=== PATIENT | male | born 1960 | race African-American/Black ===

== ENCOUNTER 2020-03-10 21:04 | Emergency (ER) | payer SELFPAY ==
[2020-03-10 21:10] VITALS: BP 128/81; PULSE 88; TEMP 98; BMI 32.8
[2020-03-10] MEDS ORDERED: TETRACAINE 0.5% OPHTH SOLN 2 ML BOTTLE ONE (21:11)
[2020-03-10] MEDS ORDERED: FLUORESCEIN NA 1 EA STRIP ONE (21:11)
--- NOTE | 2020-03-10 22:14 | PDOC ---
History of Present Illness - General Chief Complaint: Eye Problem Stated Complaint: RT EYE PAIN Time Seen by Provider: 03/10/20 21:08 - History of Present Illness Initial Comments: This 60-year-old man presents with foreign body sensation of right eye. Just prior to presentation, the patient was cutting fiberboard (patient was using eye protection) when particle flew into his right eye. The patient states that he irrigated the eye copiously as well as attempting to remove particle with tissue. Despite this, he has sensation of foreign body, especially in the medial aspect, under the upper lid. He denies vision changes. No other injury reported. No known allergies No smoking/no daily alcohol or other recreational drug use Past History - Medical History Allergies/Adverse Reactions: Allergies Allergy/AdvReac Type Severity Reaction Status Date / Time No Known Allergies Allergy Verified 05/28/15 12:39 Home Medications: Ambulatory Orders Methimazole 10 mg PO DAILY 05/28/15 COPD: No Thyroid Disease: Yes (HYPER) - Psycho-Social/Smoking History Smoking History: Never smoked Review of Systems - Review of Systems Able to Perform ROS?: Yes Comments:: 12 point review of systems is negative except for what is noted in the history of present illness *Physical Exam - Vital Signs Last Vital Signs Temp Pulse Resp BP Pulse Ox 98 F 88 16 128/81 99 03/10/20 21:05 03/10/20 21:05 03/10/20 21:05 03/10/20 21:05 03/10/20 21:05 - Physical Exam GENERAL: Adult male, alert and oriented x3, in mild distress secondary to right eye discomfort HEAD: Normal with no signs of trauma. EYES: Right eye-markedly erythematous conjunctiva, no obvious corneal foreign body or clouding Somewhat edematous area of conjunctiva medial to the iris with tiny white area located centrally Pupil round, 2 mm and briskly reactive; anterior chamber without abnormality Left eyenon-erythematous, no edema or other abnormality EXTREMITIES: Normal range of motion, no edema. No clubbing or cyanosis. No erythema, or tenderness. NEUROLOGICAL: Cranial nerves II through XII grossly intact. Normal speech. No focal neurological deficits. MUSCULOSKELETAL: Back non-tender to palpation, no CVA tenderness SKIN: Warm, Dry, normal turgor, no rashes or lesions noted. Using sterile technique, 2 drops of tetracaine ophthalmic solution placed in right eye. Fluorescein staining applied and williamson light used: No evidence of corneal uptake of stain. Uptake seen in central area of edematous medial conjunctiva. While maintaining sterile technique, sterile applicator used to gently remove white foreign body from medial conjunctival area Upper lid everted and carefully examined: No evidence of foreign body noted Medical Decision Making - Medical Decision Making This 60-year-old man presents with foreign body sensation in the right eye after particle entered the eye while he was cutting fiberboard. Exam as noted with results of fluorescein staining (no corneal abrasion noted). After apparent conjunctival foreign body removed using sterile applicator, 2 drops of ciprofloxacin ophthalmic solution applied to the right eye. Patient was discharged with referral information for Dr. Jimenez/Dr. Espinosa ophthalmology officehe should call at 9 AM tomorrow and arrange for follow-up tomorrow. Meanwhile, he should continue to apply ciprofloxacin eyedrops 2 drops in right eye every 4 hours while awake. The patient was given Tylenol 1 g orally now and he can continue to take Tylenol alternating with ibuprofen/naproxen as needed for pain. He should keep his head elevated tonight and return to the ER if he has severe/persistent pain. Discharge - Discharge Information Problems reviewed: Yes Clinical Impression/Diagnosis: Foreign body of conjunctiva, right Qualifiers: Encounter type: initial encounter Qualified Code(s): T15.11XA - Foreign body in conjunctival sac, right eye, initial encounter Condition: Stable Disposition: HOME - Follow up/Referral Referrals: ON STAFF,NOT [Primary Care Provider] - Elen Jimenez MD [Staff Physician] - Call tomorrow - Patient Discharge Instructions Patient Printed Discharge Instructions: DI for Foreign Body in the Eye Additional Instructions: Cipro eyedrops: 2 drops in right eye every 4 hours while awake until seen by fine hairer Call ophthalmology group (Vishal Jimenez/Jesús) tomorrow a.m. and arrange follow-up Tylenol/Motrin/Aleve as needed for pain Return to ER if you have worsening pain/swelling/redness or if you have vision problems - Post Discharge Activity
[2020-03-10] MEDS ORDERED: CIPROFLOXACIN HCL 0.3% OPHTH 2.5ML BOTTLE ONE (22:28)
[2020-03-10] MEDS ORDERED: ACETAMINOPHEN 500 MG TABLET (FP) ONE (23:00)
== END 2020-03-10 22:37 | disposition home or self-care (01) ==
LOC: FER 21:04
PROC: 3E1CX8Z Irrigation of Eye using Irrigating Substance (ICD-10-PCS; principal; 2020-03-10)
DX: T15.11XA Foreign body in conjunctival sac, right eye, initial encounter (principal)
CPT/HCPCS: 99283-25